=== PATIENT | male | born 1960 | race Caucasian/White ===

== ENCOUNTER 2019-01-16 07:51 | Observation (INO) | payer OTHER ==
[~2019-01-16] VITALS: Ht 172.7 cm; Wt 87.1 kg
[2019-01-16 07:56] VITALS: Ht 172.7 cm; Wt 87.1 kg
--- NOTE | 2019-01-16 08:04 | NUR ---
DR JOE AT BEDSIDE FOR MSE. PT REPORTS "HEART FEELING FUNNY" SINCE LAST NIGHT. PT AAOX4 NO DISTRESS LUNGS CTA. PT REPORTS FEELING SOB EKG DONE IN TRIAGE PT PLACED ON FULL CM AFIB. O2 AT 2L VIA NC. PT GOWNED IN POSITION OF COMFORT WILL MONITOR AWAITING MD ORDERS.
--- NOTE | 2019-01-16 08:23 | NUR ---
PT MEDICATED PER MD ORDERS SEE EMAR. PORTABLE CXR IN PROGRESS
[2019-01-16 08:31] LABS: BASOPHIL % 0.3 % (0-2); PLATELET COUNT 250 x10^3mcL (130-400); RED CELL DISTRIBUTION WIDTH 12.7 % (11.5-14.5)
[2019-01-16 08:41] LABS: CALCIUM 8.9 mg/dL (8.5-10.1); CHLORIDE SERUM 107 mmol/L (98-107); CREATININE SERUM 1.2 mg/dL (0.7-1.3); GFR1 > 60 mL/min; GLUCOSE SERUM 113 mg/dL (74-106); POTASSIUM SERUM 4.4 mmol/L (3.5-5.1); SODIUM SERUM 142 mmol/L (136-145)
[2019-01-16 08:45] LABS: ALBUMIN 3.6 g/dL (3.4-5.0); ALKALINE PHOSPHATASE 74 U/L (46-116); ALT/SGPT 28 U/L (16-63); AST/SGOT 17 U/L (15-37); BILIRUBIN TOTAL 0.96 mg/dL (0.20-1.00); TOTAL PROTEIN, SERUM 6.9 g/dL (6.4-8.2)
--- NOTE | 2019-01-16 09:03 | NUR ---
PT SITTING COMFORTABLY AT BEDSIDE PT IN NO DISTRESS HR RANGING FROM 96-102 ER MD AWARE. NO NEW ORDERS. PT FREE OF CP ASYMPTOMATIC AT THIS TIME REMAINS ON FULL CM WILL CONTINUE TO MONITOR
--- NOTE | 2019-01-16 09:48 | NUR ---
DR JOE AT BEDSIDE DISCUSSING POC WITH PT AND PTS .
[2019-01-16] MEDS ORDERED: LEVOXYL0.075 MG PO (09:50)
--- NOTE | 2019-01-16 10:24 | NUR ---
SPOKE TO GEOFF AT [facility] WHO IS ARRANGING TRANSFER OF PT TO [facility]. INFORMATION GIVEN TO DR JOE. NO NEW ORDERS PT IN NO DISTRESS COMFORTABLE STABLE VS WILL CONTINUE TO MONITOR
--- NOTE | 2019-01-16 11:06 | NUR ---
REPORT GIVEN TO DAGOBERTO MCCULLOUGH WHO WILL RESUME CARE OF PT IN TELE FLOOR.
--- NOTE | 2019-01-16 11:12 | NUR ---
PT TO TELE FLOOR VIA GURNEY NO DISTRESS ON PORTABLE CM ACCOMPANYING PT BALA RN RESUMING CARE OF PT.
--- NOTE | 2019-01-16 11:16 | NUR ---
RECIEVED PT FROM ER. PT BROUGHT IN [place] WITH NURSE AND FAMILY AT BEDSIDE. A/O X4. TELE MONITOR # 28 APPLIED TO PT. PT CAME IN D/T PAPLITATIONS SINCE LASTNIGHT. DIAGNOSIS NEW ONST IF AFIB. PT REPORTS NO CHEST PAIN AT THIS TIME. BREATHING EVEN AND UNLABORED. ON RA. NO SOB OR DISTRESS NOTED. IV INTACT AND PATENT LAC. PT ORIENTED TO ROOM. INSTRUCTED TO CALL FOR ASSISTANCE. CALL LIGHT WITHIN REACH. WILL MONITOR
[2019-01-16 11:23] LABS: FREE T4 1.31 ng/dL (0.76-1.46)
[2019-01-16 13:33] LABS: AMPHETAMINE QUAL UR NONE DETECTED (See below)
--- NOTE | 2019-01-16 15:20 | NUR ---
PER DR. COYNE IF PATIENTS HR IS STILL GREATER THEN 110 ONE HOUR AFTER LOPRESSOR IVP GIVEN (SEE eMAR), RN IS TO CALL DR. COYNE AND NOTIFY HIM SO HE CAN ORDER AN ADDITIONAL DOSE OF LOPRESSOR IVP. ALL QUESTIONS AND CONCERNS ADDRESSED. WILL MONITOR.
--- NOTE | 2019-01-16 15:40 | NUR ---
PATIENTS IV TO LAC RED AND SWOLLEN, REMOVED CATH INTACT. NEW IV PLACED TO RFA 20 GAUGE, GOOD BLOOD RETURN, FLUSHED WELL WITH 10 ML NS, IV H/L AT THIS TIME. PATIENT TOLERATED WELL. SAFETY PRECAUTIONS IN PLACE. WILL MONITOR.
--- NOTE | 2019-01-16 17:06 | NUR ---
SPOKE WITH DR COYNE, INFORMED HIM PTS HR ON MONITOR WAS FLUCTUATING BETWEEN 116-134, DR MILLER AWARE OF BP OF 127/88 HR 84. RECIEVED TELEPHONE ORDER FOR METOPROLOL TARTRATE 5MG IVP ONCE NOW.WILL CARRY OUT ORDER.
--- NOTE | 2019-01-16 18:38 | NUR ---
PATIENT SITTING UP IN BED C/O SOB, BREATHING EVEN AND UNLABBORED, NO DISTRESS NOTED. PLACED PATIENT ON O2 2 L/MIN VIA NC WITH O2 SAT 95-96% ON O2 2 LITERS, HR 107 VIA MONITOR. PATIENT DENIES ANY CHEST PAIN. IV TO RFA H/L INTACT AND PATENT. AT BEDSIDE. ALL NEEDS ATTENDED TO. SAFETY PRECAUTIONS IN PLACE. WILL ENDORSE CARE TO ONCOMING NURSE.
--- NOTE | 2019-01-16 19:27 | NUR ---
RECEIVED PATIENT IN BED AWAKE, ALERT AND ORIENTED WITH NO C/O CHEST DISCOMFORT AT THIS TIME. TELE# 28 AFIB ON MONITOR. ON O2 AT 2L VIA NC SATTING AT 97%. IV TO RFA HEPLOCKED INTACT. WILL CONTINUE TO MONITOR. CALL LIGHT WITHIN REACH.
[2019-01-16 20:57] VITALS: BP 119/77
--- NOTE | 2019-01-17 00:05 | NUR ---
PATIENT HR-120'S TO 150'S HIGHEST IS 160/HR, DR VEGAS MADE AWARE WITH NEW ORDERS TO CARRY OUT.
--- NOTE | 2019-01-17 02:56 | NUR ---
WITH NEW ORDERS FROM DR VEGAS, BANANA BAG INFUSING AT 100ML/HR. WILL CONTINUE TO MONITOR.
--- NOTE | 2019-01-17 05:03 | NUR ---
SLEPT FAIRLY, CHECKED AT INTERVALS FOR NEEDS AND SAFETY. ALL NEEDS ATTENDED.
[2019-01-17 05:46] VITALS: BP 103/73
--- NOTE | 2019-01-17 06:06 | NUR ---
PATIENT CARDIAC RHYTHM CONVERTED TO NSR FROM AFIB. WILL ENDORSE CONTINOUS CARE TO AM SHIFT.
--- NOTE | 2019-01-17 07:40 | NUR ---
REPORT RECEIVED. PATIENT IN BED DOZING ON INITIAL ROUNDS. NOT IN ANY DISTRESS. DENIES ANY CP OR SOB. BANANA BAG TO RFA INFUSING AT 100CC/HR VIA PUMP. SITE WNL. BED LOW AND LOCKED. INSTRUCTED TO CALL RN FOR ANY NEEDS. CALL CHÁVEZ WITHIN REACH.
[2019-01-17 09:48] VITALS: BP 108/75
--- NOTE | 2019-01-17 10:25 | NUR ---
SEEN WITH IV PUMP BEEPING. AIR REMOVED AND IV SITE FLUSHED. VISITOR AT BEDSIDE. CALL LIGHT WITHIN REACH. NO COMPLAINTS AT THIS TIME.
[2019-01-17 11:01] VITALS: BP 108/75
--- NOTE | 2019-01-17 11:01 | NUR ---
MD VEGAS AT BEDSIDE SPEAKING WITH PATIENT. PLAN IS DISCHARGE TODAY.
--- NOTE | 2019-01-17 12:30 | NUR ---
DISCHARGE TEACHINGS RE- MEDS, DIET, ACTIVITY, MD FOLLOW UP DONE. GIVEN HANDOUTS FOR MEDS TO . TELE AND HEPRLOCK REMOVED AND PRESSURE APPLIED. ESCORTED BY ALON KELLER OFF THE FLOOR TO LOBBY. PATIENT NOT IN ANY DISTRESS.
== END 2019-01-17 12:13 | disposition home or self-care (01) | DRG 918 ==
LOC: ED 07:51 → DU 10:46
PROVIDERS: Emergency Medicine; ADMIT Internal Medicine Pulmonary Disease
DX: T51.0X1A Toxic effect of ethanol, accidental (unintentional), initial encounter (principal); F10.188 Alcohol abuse with other alcohol-induced disorder; I48.0 Paroxysmal atrial fibrillation; E03.9 Hypothyroidism, unspecified; Z68.30 Body mass index [BMI] 30.0-30.9, adult; Y92.009 Unspecified place in unspecified non-institutional (private) residence as the place of occurrence of the external cause
CPT/HCPCS: 84439; G0378; J3411; J3475; J3490; J7030; J7040; Q0092